=== PATIENT | female | born 1955 | race Caucasian/White ===

== ENCOUNTER → 2018-05-18 | Outpatient (CLI) | payer SELFPAY ==
--- NOTE | 2018-05-18 17:44 | PCVCIMAG ---
APPROVED REPORT Study performed: 05/18/2018 13:47:12 EXAM: Comprehensive 2D, Doppler, and color-flow Echocardiogram Patient Location: Echo lab Room #: 3Status: routine BSA: 2.02 HR: 70 bpmBP: 116/58 mmHg Rhythm: NSR Other Information Study Quality: Fair Risk Factors: Cardiac Risk Factors: DM Indications Diabetes STUDY GROUP DR ROSE 2D Dimensions IVSd: 10.12 (7-11mm)LVOT Diam: 20.62 (18-24mm) LVDd: 47.87 mm PWd: 7.46 (7-11mm)Ascending Ao: 31.09 (22-36mm) LVDs: 31.34 (25-40mm) Left Atrium: 34.04 (27-40mm) Aortic Root: 25.08 mm LV Single Plane 4CH: 54.89 % LV Single Plane 2CH: 73.37 % Biplane EF: 65.9 % Volumes Left Atrial Volume (Systole) Single Plane 4CH: 32.63 mLSingle Plane 2CH: 28.23 mL Biplane LA Volume: 33.00 mLLA ESV Index: 16.00 mL/m2 Aortic Valve AoV Peak Brian.: 1.78 m/s AO Peak Gr.: 13.68 mmHgLVOT Max P.80 mmHg LVOT Max V: 1.20 m/s EZEKIEL Vmax: 2.25 cm2 Mitral Valve E/A Ratio: 1.0 MV Decel. Time: 178.77 ms MV E Max Brian.: 0.83 m/s MV A Brian.: 0.85 m/s IVRT: 83.04 ms TDI E/Lateral E': 7.55E/Medial E': 9.22 Medial E' Brian.: 0.09 m/s Lateral E' Brian.: 0.11 m/s Pulmonary Valve PV Peak Brian.: 0.84 m/sPV Peak Gr.: 2.84 mmHg Pulmonary Vein P Vein S: 0.40 m/sP Vein A: 0.34 m/s P Vein D: 0.42 m/sP Vein A Dur.: 83.0 msec P Vein S/D Ratio: 0.95 Tricuspid Valve TV Vmax: 0.71 m/s Left Ventricle The left ventricle is normal size. There is normal LV segmental wall motion. There is normal left ventricular wall thickness. Left ventricular systolic function is normal. The left ventricular ejection fraction is within the normal range. 55% The left ventricular diastolic function is normal. Right Ventricle The right ventricle is normal size. The right ventricular systolic function is normal. Atria The left atrium size is normal. The right atrium size is normal. Aortic Valve Aortic valve is trileaflet. The aortic valve is normal in structure. No aortic regurgitation is present. There is no aortic valvular stenosis. Mitral Valve The mitral valve is normal in structure. There is no mitral valve regurgitation noted. No evidence of mitral valve stenosis. Tricuspid Valve The tricuspid valve is normal in structure. No pulmonary hypertension. Pulmonic Valve The pulmonary valve is normal in structure. There is no pulmonic valvular regurgitation. Great Vessels The aortic root is normal in size. The ascending aorta is normal in size. IVC is normal in size and collapses >50% with inspiration. Pericardium There is no pericardial effusion. There is no pleural effusion. <Conclusion> The left ventricle is normal size. 55% The right ventricle is normal size. The left atrium size is normal. Aortic valve is trileaflet. The aortic valve is normal in structure. There is no mitral valve regurgitation noted. There is no mitral valve regurgitation noted. The aortic root is normal in size. There is no pericardial effusion.
== END | disposition home or self-care (01) ==
LOC: PCVCIMAG 13:56
PROVIDERS: ATTEND Internal Medicine Cardiovascular Disease
DX: E11.9 Type 2 diabetes mellitus without complications (principal)
CPT/HCPCS: 93306